=== PATIENT | female | born 1965 | race Hispanic/Latino ===

== ENCOUNTER 2023-12-19 06:58 | Day surgery (SDC) | payer OTHER ==
[2023-12-17 14:23] VITALS: BMI 36.4
[2023-12-19] MEDS ORDERED: Midazolam HCl 2 mg/2 ml Vial ONE (09:14)
[2023-12-19] MEDS ORDERED: PROPOFOL 20 ML ONE ×2 (09:15)
== END 2023-12-19 10:45 | disposition home or self-care (01) ==
LOC: CSHSDC 06:58
PROVIDERS: ATTEND Internal Medicine Gastroenterology
PROC: 0DBP8ZZ Excision of Rectum, Via Natural or Artificial Opening Endoscopic (ICD-10-PCS; principal; 2023-12-19)
DX: Z12.11 Encounter for screening for malignant neoplasm of colon (principal); K62.1 Rectal polyp; K64.9 Unspecified hemorrhoids; E11.9 Type 2 diabetes mellitus without complications; E03.9 Hypothyroidism, unspecified; Z86.010 Personal history of colon polyps
CPT/HCPCS: 88305; J2250; J2704